=== PATIENT | female | born 1950 | race Caucasian/White ===

== ENCOUNTER 2016-09-29 21:39 | Emergency (ER) | payer OTHER ==
[2016-09-29] MEDS ORDERED: MECLIZINE HCL 25 MG TABLET PO ONE (22:06)
--- NOTE | 2016-09-29 22:10 | ED Physician Documentation ---
Dizziness - HISTORIAN Historian: patient - HPI Stated Complaint: nausea dizziness Chief Complaint: Dizziness Timing: gradual onset Duration: worse Last known Well Date: 09/28/16 Severity: moderate Associated Symptoms: sense of spinning ("when I move") Usually: walks w/o assistance Worsened By: changing position, movement of head Further Comments: yes (66 year old female patient present with complaints of dizziness. State it started last night, c/o feeling the bed move. Progressively worse today, worse with movement. Able to ambulate, steady gait.) - ROS CONST: none EYES/ENT: none GI/: none MS/SKIN/LYMPH: none NEURO/PSYCH: none CVS/RESP: none - PAST HX Past History: diabetes Type 2, hyperlipidemia, hypertension, other (Sleep apnea , depression) Surgeries/Procedures: hysterectomy, Allergies/Adverse Reactions: Allergies Allergy/AdvReac Type Severity Reaction Status Date / Time Penicillins Allergy Intermediate Eye Verified 09/29/16 21:53 Swelling Home Medications: Ambulatory Orders Medication Instructions Recorded Ascorbic Acid [Vitamin C] 500 mg PO D 09/29/16 Aspirin EC [Ecotrin] 81 mg PO D 09/29/16 Calcium Carbonate/Vitamin D3 1,200 mg PO D 09/29/16 [Calcium Petites Softgel] Celecoxib [Celebrex] 100 mg PO D 09/29/16 Cholecalciferol [Vitamin D-3] 1,000 mg PO D 09/29/16 Docusate Sodium [Colace] 100 mg PO BID 09/29/16 Escitalopram Oxalate [Lexapro] 20 mg PO D 09/29/16 Gabapentin [Gabapentin] 300 mg PO TID 09/29/16 Glimepiride [Amaryl] 4 mg PO D 09/29/16 Hydrochlorothiazide [Hydrodiuril] 25 mg PO D 09/29/16 Insulin Glargine,Hum.rec.anlog 55 unit SQ D 09/29/16 [Lantus Solostar] Liraglutide [Victoza 2-Christophe] 1.8 units SQ D 09/29/16 Meclizine HCl [Antivert] 25 mg PO TID PRN #30 tablet 09/29/16 Metformin HCl [Glucophage] 1,000 mg PO BID 09/29/16 Metoprolol Tartrate [Lopressor] 25 mg PO D 09/29/16 Modafinil [Provigil] 300 mg PO D 09/29/16 Multivitamin [Daily Multiple 1 tab PO D 09/29/16 Vitamin] Nortriptyline HCl [Pamelor] 10 mg PO D 09/29/16 Omeprazole [Prilosec] 20 mg PO D 09/29/16 Pravastatin Sodium [Pravachol] 80 mg PO HS 09/29/16 Pyridoxine HCl [Vitamin B-6] 100 mg PO D 09/29/16 Ranitidine HCl [Ranitidine HCl] 150 mg PO BID 09/29/16 - SOCIAL HX Smoking History: non-smoker - FAMILY HX Family History: denies: none - VITAL SIGNS Vital Signs: Vital Signs Temp Pulse Resp BP Pulse Ox 97.4 F L 75 18 139/70 94 09/29/16 21:39 09/29/16 21:39 09/29/16 21:39 09/29/16 21:39 09/29/16 21:39 - REVIEWED ASSESSMENTS Nursing Assessment Reviewed: Yes Vitals Reviewed: Yes Progress - Progress Progress: negative orthostatics. 2250 Patient states dizziness has improved with medication, "is not completely gone". discussed treatment plan, encouraged patient to see PCP Thursday. Patient stated she has an appointment in 2 weeks, states she will not be able to see PCP sooner. Encourage patient to return to ER if symptoms became worse. Education on meclizine. No driving while dizzy. Use a cane or walker if you are dizzy with ambulation. ED Results Lab/Radiology - Orders Orders: ED Orders Category Date Time Status Meclizine HCl [Antivert] Med 09/29/16 22:06 Discontinued 25 mg PO NOW ONE Dizziness Physical Exam - Physical Exam General Appearance: mild distress EENT: eye inspection normal, ENT inspection normal, pharynx normal, no signs of dehydration, PONCHO, no nystagmus, TM's nml Respiratory: no respiratory distress, breath sounds nml, chest non-tender CVS: reg rate & rhythm, heart sounds normal, equal pulses, no murmur, no gallop , PMI nml, no JVD, no friction rub, 24 Abdomen: soft, no organomegaly, normal bowel sounds, no abdominal bruit, no distension Skin: normal color, warm/dry, NR, INT, PAL, DR Neuro: nml orientation, nml speech, nml cognition, mood/affect nml Extremities: non-tender, normal range of motion, no evidence of injury, no edema , J, [employer] Cranial: nml as tested, no evidence of acute CVA Cerebellar: nml as tested, nml gait Sensorimotor: motor nml, sensation nml Discharge Clincal Impression: Vertigo Prescriptions: Meclizine HCl [Antivert] 25 mg PO TID PRN #30 tablet PRN Reason: Dizziness Referrals: Donal Guthrie DO [STAFF PHYSICIAN] - 2 Days Additional Instructions: insurance office supervisor your meclizine tomorrow. You may use 1 tab every 8 hour as needed for dizziness. Keep your primary care appointment, return to ER or see your provider if your symptoms are worse. Use a cane or walker if you are dizzy with ambulation. Do not drive. Home Medications: Ambulatory Orders Ascorbic Acid [Vitamin C] 500 mg PO D 09/29/16 Aspirin EC [Ecotrin] 81 mg PO D 09/29/16 Calcium Carbonate/Vitamin D3 [Calcium Petites Softgel] 1,200 mg PO D 09/29/16 Celecoxib [Celebrex] 100 mg PO D 09/29/16 Cholecalciferol [Vitamin D-3] 1,000 mg PO D 09/29/16 Docusate Sodium [Colace] 100 mg PO BID 09/29/16 Escitalopram Oxalate [Lexapro] 20 mg PO D 09/29/16 Gabapentin [Gabapentin] 300 mg PO TID 09/29/16 Glimepiride [Amaryl] 4 mg PO D 09/29/16 Hydrochlorothiazide [Hydrodiuril] 25 mg PO D 09/29/16 Insulin Glargine,Hum.rec.anlog [Lantus Solostar] 55 unit SQ D 09/29/16 Liraglutide [Victoza 2-Christophe] 1.8 units SQ D 09/29/16 Meclizine HCl [Antivert] 25 mg PO TID PRN #30 tablet 09/29/16 Metformin HCl [Glucophage] 1,000 mg PO BID 09/29/16 Metoprolol Tartrate [Lopressor] 25 mg PO D 09/29/16 Modafinil [Provigil] 300 mg PO D 09/29/16 Multivitamin [Daily Multiple Vitamin] 1 tab PO D 09/29/16 Nortriptyline HCl [Pamelor] 10 mg PO D 09/29/16 Omeprazole [Prilosec] 20 mg PO D 09/29/16 Pravastatin Sodium [Pravachol] 80 mg PO HS 09/29/16 Pyridoxine HCl [Vitamin B-6] 100 mg PO D 09/29/16 Ranitidine HCl [Ranitidine HCl] 150 mg PO BID 09/29/16 Condition: Stable Disposition: 01 HOME, SELF-CARE Decision to Admit: NO Decision Time: 22:48
[2016-09-29 23:12] VITALS: BP 131/59
== END 2016-09-29 23:00 | disposition home or self-care (01) ==
LOC: ED 21:39
DX: R42 Dizziness and giddiness (principal)
CPT/HCPCS: 99283